=== PATIENT | female | born 1985 | race Two or more races ===

== ENCOUNTER → 2017-10-18 | Outpatient (CLI) | payer OTHER ==
[2017-10-18 16:44] LABS: BASOPHILS % (AUTO) 0.9 % (0.0-5.0); EOSINOPHILS % (AUTO) 1.5 % (0.0-8.0); HEMATOCRIT 34.8 % (36-48); LYMPHOCYTES % (AUTO) 34.2 % (21.0-51.0); MEAN CORPUSCULAR HEMOGLOBIN 28.2 pg (27.0-33.0); MEAN CORPUSCULAR HGB CONC 34.6 g/dL (32.0-36.0); MEAN CORPUSCULAR VOLUME 81.7 fL (79-99); NEUTROPHILS % (AUTO) 55.4 % (40.0-77.0); PLATELET COUNT (AUTO) 222 K/uL (130-400); RED BLOOD CELL COUNT(AUTO) 4.26 MIL/uL (4.00-5.50); RED CELL DISTRIBUTION WIDTH 13.4 % (11.0-15.5); WHITE BLOOD COUNT (AUTO) 5.6 K/uL (4.8-10.8)
[2017-10-18 16:52] LABS: APPEARANCE,URINE Clear (CLEAR); BILIRUBIN,URINE Negative (NEGATIVE); COLOR,URINE Dark Yellow (YELLOW); GLUCOSE, URINE (UA) Negative (NEGATIVE); KETONES,URINE Negative (NEGATIVE); LEUKOCYTE ESTERASE ,URINE Small (NEGATIVE); NITRATE,URINE Negative (NEGATIVE); OCCULT BLOOD,URINE Negative (NEGATIVE); PH,URINE 7.5 (5.0-8.0); PROTEIN,URINE Negative (NEGATIVE); UROBILINOGEN,URINE 0.2 mg/dL (0.2-1.0)
[2017-10-18 17:11] LABS: BACTERIA,URINE Few /HPF (None Seen); RBC,URINE None Seen /HPF (0-1); SQUAMOUS EPITHELIAL CELL,UR 0-2 /HPF (0-2); WBC,URINE 0-1 /HPF (0-1)
[2017-10-18 17:14] LABS: ALBUMIN 3.9 g/dL (3.5-5.0); BILIRUBIN,TOTAL 0.6 mg/dL (0.2-1.0); CREATININE 0.7 mg/dL (0.5-1.5); MAGNESIUM 1.8 mg/dL (1.80-2.40); POTASSIUM 3.6 mmol/L (3.5-5.1); THYROID STIMULATING HORMONE 1.35 uIU/mL (0.36-3.74)
== END | disposition home or self-care (01) ==
LOC: LAB 10-17 07:34
PROVIDERS: ATTEND Family Medicine
DX: Z00.01 Encounter for general adult medical examination with abnormal findings (principal); R79.89 Other specified abnormal findings of blood chemistry
CPT/HCPCS: 36415; 80053; 81001; 83735; 84443; 85025

== ENCOUNTER → 2018-07-11 | Outpatient (CLI) | payer OTHER ==
[2018-07-11 14:04] LABS: BASOPHILS % (AUTO) 1.2 % (0.0-5.0); EOSINOPHILS % (AUTO) 1.3 % (0.0-8.0); HEMATOCRIT 36.3 % (36-48); LYMPHOCYTES % (AUTO) 35.3 % (21.0-51.0); MEAN CORPUSCULAR HEMOGLOBIN 27.1 pg (27.0-33.0); MEAN CORPUSCULAR HGB CONC 32.5 g/dL (32.0-36.0); MEAN CORPUSCULAR VOLUME 83.6 fL (79-99); MONOCYTES % (AUTO) 6.6 % (3.0-13.0); NEUTROPHILS % (AUTO) 55.6 % (40.0-77.0); PLATELET COUNT (AUTO) 195 K/uL (130-400); RED BLOOD CELL COUNT(AUTO) 4.35 MIL/uL (4.00-5.50); RED CELL DISTRIBUTION WIDTH 13.3 % (11.0-15.5)
[2018-07-11 14:15] LABS: BILIRUBIN,TOTAL 0.5 mg/dL (0.2-1.0); CREATININE 0.6 mg/dL (0.5-1.5); TOTAL PROTEIN, SERUM 7.4 g/dL (6.0-8.3)
[2018-07-11 15:09] LABS: ERYTHROCYTE SEDIMENTATION RATE 5 MM/HR (0-20)
== END | disposition home or self-care (01) ==
LOC: RAH 13:12
PROVIDERS: ATTEND Family Medicine
DX: M54.2 Cervicalgia (principal); M54.5 Low back pain; M13.0 Polyarthritis, unspecified; R53.82 Chronic fatigue, unspecified
CPT/HCPCS: 36415; 72040; 72100; 80053; 85025; 85651; 86618

== ENCOUNTER → 2021-05-15 | Outpatient (CLI) | payer OTHER ==
[2021-05-15 11:13] LABS: BASOPHILS % (AUTO) 0.8 % (0.0-5.0); EOSINOPHILS % (AUTO) 1.3 % (0.0-8.0); LYMPHOCYTES % (AUTO) 23.3 % (21.0-51.0); MEAN CORPUSCULAR HEMOGLOBIN 26.7 pg (27.0-33.0); MEAN CORPUSCULAR HGB CONC 32.2 g/dL (32.0-36.0); MONOCYTES % (AUTO) 6.7 % (3.0-13.0); NEUTROPHILS % (AUTO) 67.8 % (40.0-77.0); PLATELET COUNT (AUTO) 212 K/uL (130-400); RED BLOOD CELL COUNT(AUTO) 4.46 MIL/uL (4.00-5.50); RED CELL DISTRIBUTION WIDTH 13.3 % (11.0-15.5); WHITE BLOOD COUNT (AUTO) 7.1 K/uL (4.8-10.8)
[2021-05-15 12:03] LABS: ALBUMIN 4.1 g/dL (3.5-5.0); BILIRUBIN,DIRECT 0.2 mg/dL (0.0-0.3); BILIRUBIN,TOTAL 0.9 mg/dL (0.2-1.0); CREATININE 0.7 mg/dL (0.5-1.5); POTASSIUM 3.9 mmol/L (3.5-5.1); THYROID STIMULATING HORMONE 1.03 uIU/mL (0.36-3.74); TOTAL PROTEIN, SERUM 7.4 g/dL (6.0-8.3)
== END | disposition home or self-care (01) ==
LOC: LAB 09:10
PROVIDERS: ATTEND Internal Medicine
DX: Z01.89 Encounter for other specified special examinations (principal); Z68.1 Body mass index [BMI] 19.9 or less, adult
CPT/HCPCS: 36415; 80048; 80061; 80076; 82607; 83540; 84443; 85025

== ENCOUNTER → 2021-11-09 | Outpatient (CLI) | payer OTHER | END | disposition home or self-care (01) | LOC: ICE 08:56 | PROVIDERS: ATTEND Hospitalist | DX: U07.1 COVID-19 (principal) | CPT/HCPCS: 87635; C9803 ==

== ENCOUNTER → 2022-02-16 | Outpatient (CLI) | payer OTHER ==
[2022-02-16 11:29] LABS: BASOPHILS % (AUTO) 0.6 % (0.0-5.0); EOSINOPHILS % (AUTO) 1.3 % (0.0-8.0); HEMATOCRIT 38.4 % (36-48); LYMPHOCYTES % (AUTO) 32.2 % (21.0-51.0); MEAN CORPUSCULAR HEMOGLOBIN 27.4 pg (27.0-33.0); MEAN CORPUSCULAR VOLUME 85.5 fL (79-99); MONOCYTES % (AUTO) 7.1 % (3.0-13.0); NEUTROPHILS % (AUTO) 58.2 % (40.0-77.0); PLATELET COUNT (AUTO) 186 K/uL (130-400); RED BLOOD CELL COUNT(AUTO) 4.49 MIL/uL (4.00-5.50); RED CELL DISTRIBUTION WIDTH 12.8 % (11.0-15.5); WHITE BLOOD COUNT (AUTO) 5.2 K/uL (4.8-10.8)
[2022-02-16 11:38] LABS: CREATININE 0.7 mg/dL (0.5-1.5); POTASSIUM 3.7 mmol/L (3.5-5.1); URIC ACID 2.8 mg/dL (2.6-7.2)
[2022-02-16 12:35] LABS: ERYTHROCYTE SEDIMENTATION RATE 7 MM/HR (0-20)
== END | disposition home or self-care (01) ==
LOC: RAH 10:05
PROVIDERS: ATTEND Internal Medicine
DX: Z13.220 Encounter for screening for lipoid disorders (principal); Z13.29 Encounter for screening for other suspected endocrine disorder; M25.531 Pain in right wrist
CPT/HCPCS: 36415; 73110; 80048; 84550; 85025; 85651; 86038; 86200

== ENCOUNTER → 2022-11-20 | Outpatient (CLI) | payer OTHER ==
[2022-11-20 12:19] LABS: BASOPHILS % (AUTO) 0.7 % (0.0-5.0); EOSINOPHILS % (AUTO) 1.6 % (0.0-8.0); HEMATOCRIT 38.1 % (36-48); LYMPHOCYTES % (AUTO) 32.3 % (21.0-51.0); MEAN CORPUSCULAR HGB CONC 31.5 g/dL (32.0-36.0); MEAN CORPUSCULAR VOLUME 85.8 fL (79-99); MONOCYTES % (AUTO) 7.7 % (3.0-13.0); NEUTROPHILS % (AUTO) 57.5 % (40.0-77.0); PLATELET COUNT (AUTO) 193 K/uL (130-400); RED BLOOD CELL COUNT(AUTO) 4.44 MIL/uL (4.00-5.50); RED CELL DISTRIBUTION WIDTH 13.1 % (11.0-15.5); WHITE BLOOD COUNT (AUTO) 5.5 K/uL (4.8-10.8)
[2022-11-20 12:51] LABS: ALBUMIN 4.1 g/dL (3.5-5.0); CREATININE 0.7 mg/dL (0.5-1.5); POTASSIUM 3.7 mmol/L (3.5-5.1); THYROID STIMULATING HORMONE 0.96 uIU/mL (0.36-3.74); TOTAL PROTEIN, SERUM 7.3 g/dL (6.0-8.3)
== END | disposition home or self-care (01) ==
LOC: LAB 11:42
PROVIDERS: ATTEND Internal Medicine
DX: Z00.00 Encounter for general adult medical examination without abnormal findings (principal); Z11.3 Encounter for screening for infections with a predominantly sexual mode of transmission; Z13.220 Encounter for screening for lipoid disorders; Z13.29 Encounter for screening for other suspected endocrine disorder; M25.532 Pain in left wrist; Z86.16 Personal history of COVID-19
CPT/HCPCS: 36415; 80053; 80061; 84443; 85025

== ENCOUNTER → 2023-03-04 | Outpatient (CLI) | payer OTHER | END | disposition home or self-care (01) | LOC: RAH 10:32 | PROVIDERS: ATTEND Student in an Organized Health Care Education/Training Program | DX: M79.89 Other specified soft tissue disorders (principal); M25.531 Pain in right wrist | CPT/HCPCS: 73110 ==

== ENCOUNTER → 2023-04-24 | Outpatient (CLI) | payer OTHER | END | disposition home or self-care (01) | LOC: RAH 08:57 | PROVIDERS: ATTEND Student in an Organized Health Care Education/Training Program | DX: M25.531 Pain in right wrist (principal) | CPT/HCPCS: 73221 ==

== ENCOUNTER → 2024-06-16 | Outpatient (CLI) | payer OTHER ==
[2024-06-16 12:34] LABS: BASOPHILS # (AUTO) 0.04 K/uL (0.00-0.20); BASOPHILS % (AUTO) 0.7 % (0.0-5.0); EOSINOPHILS # (AUTO) 0.08 K/uL (0.00-0.70); EOSINOPHILS % (AUTO) 1.3 % (0.0-8.0); HEMATOCRIT 36.8 % (36-48); IMMATURE GRANULOCYTE ABSOLUTE 0.02 K/uL (0-1); LYMPHOCYTES # (AUTO) 1.9 K/uL (1.0-4.8); LYMPHOCYTES % (AUTO) 32.4 % (21.0-51.0); MEAN CORPUSCULAR HEMOGLOBIN 26.9 pg (27.0-33.0); MEAN CORPUSCULAR HGB CONC 31.5 g/dL (32.0-36.0); MEAN CORPUSCULAR VOLUME 85.4 fL (79-99); MONOCYTES # (AUTO) 0.4 K/uL (0.1-1.0); MONOCYTES % (AUTO) 7.2 % (3.0-13.0); NEUTROPHILS # (AUTO) 3.5 K/uL (1.8-7.7); NEUTROPHILS % (AUTO) 58.1 % (40.0-77.0); PLATELET COUNT (AUTO) 183 K/uL (130-400); RED BLOOD CELL COUNT(AUTO) 4.31 MIL/uL (4.00-5.50); RED CELL DISTRIBUTION WIDTH 13.2 % (11.0-15.5)
[2024-06-16 13:31] LABS: ALBUMIN 3.8 g/dL (3.5-5.0); BILIRUBIN,TOTAL 0.9 mg/dL (0.2-1.0); CREATININE 0.6 mg/dL (0.5-1.0); POTASSIUM 3.7 mmol/L (3.5-5.1); THYROID STIMULATING HORMONE 1.38 uIU/mL (0.36-3.74); TOTAL PROTEIN, SERUM 6.9 g/dL (6.0-8.3)
[2024-06-16 13:36] LABS: HIV 1&2 ANTIBODY Non-Reactive (Negative); HIV-1 p24 Antigen Non-Reactive (Negative)
[2024-06-17 14:52] LABS: RAPID PLASMA REAGIN NONREACTIVE (NONREACTIVE)
== END | disposition home or self-care (01) ==
LOC: LAB 11:41
PROVIDERS: ATTEND Internal Medicine
DX: Z00.00 Encounter for general adult medical examination without abnormal findings (principal); Z13.220 Encounter for screening for lipoid disorders; Z11.4 Encounter for screening for human immunodeficiency virus [HIV]; Z13.29 Encounter for screening for other suspected endocrine disorder; Z72.51 High risk heterosexual behavior
CPT/HCPCS: 36415; 80053; 80061; 84443; 85025; 86592; 86701; 87390; 87491; 87591

== ENCOUNTER 2024-09-24 21:51 | Emergency (ER) | payer OTHER ==
[~2024-09-24] VITALS: Ht 175.3 cm; Wt 62.6 kg
[2024-09-24 21:52] VITALS: BP 107/64; PULSE 111; RESP 20; TEMP 100.8
--- NOTE | 2024-09-24 21:53 | NUR ---
COVID, FLU AND STREP SWABS COLLECTED AND SENT [facility] PROVIDED
[2024-09-24 22:11] LABS: RAPID GROUP A STREP negative (NEGATIVE)
[2024-09-24 22:14] LABS: SARS-CoV-2, RNA, NAAT NEGATIVE SARS CoV-2 (NEGATIVE)
[2024-09-24 22:21] LABS: INFLUENZA TYPE A Negative For Type A (NEGATIVE); INFLUENZA TYPE B Negative For Type B (NEGATIVE)
--- NOTE | 2024-09-25 00:18 | NUR ---
PT PLACED IN FAST TRACK AT THIS TIME
--- NOTE | 2024-09-25 00:32 | NUR ---
CALLED FOR PATIENT IN FAST TRACK, PT NOT FOUND IN FAST TRACK, ER LOBBY OR RESTROOMS
--- NOTE | 2024-09-25 00:40 | NUR ---
CALED FOR PATIENT X2, NO ANSWER
--- NOTE | 2024-09-25 00:47 | ERN ---
ED Note History of Present Illness Stated Complaint: FEVER, BODYACHES Chief Complaint: Fever Time Seen by MD: 22:10 Time Seen by Midlevel: 22:10 Dictation: The Patient is a 39-year-old female with history of who presents to the emergency department with complaints of fever, sore throat, nonproductive cough onset three days ago. Patient reports also some nonbloody diarrhea. Denies any ear pain abdominal pain nausea or vomiting. Allergies: Coded Allergies: morphine (Unverified Allergy, Unknown, 09/24/24) Past Medical History Past Medical History: No Pertinent History Surgical History: RN Note Reviewed/Agreed w/PFSH: Yes Review of System Dictation Constitutional: Negative for weight loss positive for fever,chills Eyes: Negative for injury, pain,redness, and discharge ENT: Negative for injury,pain or swelling Cardiovascular: Negative for chest pain, palpitations, and edema Respiratory: Negative for shortness of breath,, and wheezing, positive for cough Abdomen/GI: Negative for abdominal pain, nausea, vomiting, diarrhea, and constipation Back: Negative for injury and pain : Negative for injury, bleeding and discharge MS/Extremity: Negative for injury and deformity Skin: Negative for rash, and discoloration Neuro: Negative for headache, weakness, numbness, tingling, and seizure Psych: Negative for suicide ideation, homicidal ideation, and hallucinations Initial Vital Sign VS Vital Signs Date Time Temp Pulse Resp B/P (MAP) Pulse Ox O2 Delivery O2 Flow Rate FiO2 09/24/24 21:52 100.8 111 20 107/64 97 Room Air Physical Exam Dictation Vital Signs reviewed General Appearance: Alert, oriented x 3, no acute distress, well developed, nourished. Head and Face: non-traumatic. Eyes: PERRL, pink conjunctivas, eyelid no trauma, anterior chamber with arcus senilis. Ears: Pinnas intact and no signs of trauma or erythema ear canals clear and no discharge TM no erythema Nose: No discharge, no bleeding. Oropharynx: Mouth normal, tongue pink. pharynx clear,no erythema, tonsils no exudates, no abscesses noted, mucous membrane moist Neck: Supple, non-tender, no thyromegaly, no masses, no JVD, no bruits Breast:Deferred Chest:No tenderness, no crepitus, no paradoxical movement, no retractions Lungs:Clear, well-ventilated, symmetric, no rales, no wheezing, no rhonchi, no stridor, good breath sounds bilaterally Heart: Regular rate, regular rhythm, no murmur, no gallops Vascular: no peripheral edema, Abdomen: Soft, positive bowel sounds, nondistended, no guarding, nontender, no rebound, no masses no hepatomegaly, no splenomegaly, no Blas's sign, no hernias. Rectal: Deferred Genital: Deferred Neurological: Normal speech, motor function intact, sensory function intact Musculoskeletal: Neck nontender, full range of motion, back nontender, full range of motion, Extremities: nontender, full range of motion Skin: Color pink, dry, no turgor, no rash, no lacerations, no abrasions, no contusions. Lymphatic: Deferred Results (Laboratory/Radiology) Laboratory/Radiology Laboratory Tests Test 09/24/24 21:54 Influenza Type A Antigen Negative For Type A Influenza Type B Antigen Negative For Type B SARS-CoV-2, RNA, NAAT NEGATIVE SARS CoV-2 Group A Streptococcus Rapid negative (NEGATIVE) Labs Reviewed?: Yes ED Course ED Course Orders Procedure Category Date Status Time Covid Rna Naat LAB 09/24/24 Complete 21:53 Influenza Type A & B, LAB 09/24/24 Complete Rapid 21:53 Rapid (Group A Strep) LAB 09/24/24 Complete 21:53 ,Urine Test LAB 09/24/24 Logged 23:08 Chest 1vw RAD 09/24/24 Taken 23:08 Vital Signs Date Time Temp Pulse Resp B/P (MAP) Pulse Ox O2 Delivery O2 Flow Rate FiO2 09/24/24 21:52 100.8 111 20 107/64 97 Room Air Medical Decision Making MDM The Patient is a 39-year-old female with history of who presents to the emergency department with complaints of fever, sore throat, nonproductive cough onset three days ago. Patient reports also some nonbloody diarrhea. Denies any ear pain abdominal pain nausea or vomiting. Serology negative. X-ray showed no acute consolidation. Patient in no acute distress, clear lung sounds. Nontoxic appearance will be discharged to follow up with PCP. Differential diagnosis: Pneumonia, bronchitis, upper respiratory infection Need for hospitalization: Patient does not meet criteria for hospitalization. There are no social concerns with this patient. DX & DISP Disposition: Discharge Departure Impression: Primary Impression: URI (upper respiratory infection) Additional Impression: Fever Condition: Stable Additional Instructions: Please follow up with your primary doctor in 1-2 days. Please return to ER if symptoms worsen. FOLLOW-UP WITH PRIMARY CARE PROVIDER IN 1 TO 2 DAYS. TAKE MEDICATIONS DIRECTED HERE IN THE EMERGENCY ROOM. OKAY TO CONTINUE HOME MEDICATIONS UNLESS OTHERWISE DISCUSSED DURING YOUR VISIT IN THE EMERGENCY ROOM TODAY. RETURN TO YOUR NEAREST EMERGENCY ROOM IF SYMPTOMS WORSEN OR IF THERE IS NO IMPROVEMENT. CALL 911 IF YOU NEED IMMEDIATE ASSISTANCE. TAKE TYLENOL OR MOTRIN [id number] NEEDED AND IF NO CONTRAINDICATIONS ARE PRESENT. INCREASE ORAL HYDRATION. A WOUND CULTURE OR URINE CULTURE WAS ORDERED HERE IN THE EMERGENCY ROOM DEPARTMENT PLEASE FOLLOW-UP WITH PRIMARY CARE PROVIDER AND ADVISE THEM TO GET REPEAT PORTS FROM OUR FACILITY. IF YOU HAD ANY VINI WRAP/SPLINTS THAT WERE APPLIED HERE, PLEASE DO NOT REMOVE THEM UNTIL YOU SEE YOUR PRIMARY CARE OR SPECIALTY. Referrals: JENNIFFER VALENTINE MD (PCP) Time of Disposition: 00:51 I have reviewed the case, and I agree with, Diagnosis and Plan JOSSUE BOOKER September 25, 2024 00:47
--- NOTE | 2024-09-25 00:55 | NUR ---
CALLED FOR PATIENT X3, NO ANSWER
--- NOTE | 2024-09-25 01:00 | NUR ---
PT NOTED TO HAVE ELOPED PRIOR TO RECEIVING DC PAPERS. UNABLE TO OBTAIN NEW SET OF VITALS OR PRIMARY NURSING ASSESSMENT DUE TO PT ELOPEMENT.
--- NOTE | 2024-09-25 08:38 | HMCIMG ---
Exam Type: CHEST 1VW Clinical Information: cough Comparison: None Findings: The lungs are clear of infiltrates. The heart is normal in size. The bony and soft tissue structures of the chest are unremarkable. Impression: Clear lungs.
== END 2024-09-25 01:13 | disposition home or self-care (01) ==
LOC: EDH 21:51
DX: J06.9 Acute upper respiratory infection, unspecified (principal); R50.9 Fever, unspecified; Z88.5 Allergy status to narcotic agent; Z20.822 Contact with and (suspected) exposure to COVID-19; Z98.890 Other specified postprocedural states
CPT/HCPCS: 71045; 87635; 87804; 87880; 99284

== ENCOUNTER 2024-09-27 12:27 | Emergency (ER) | payer OTHER ==
[~2024-09-27] VITALS: Ht 175.3 cm; Wt 62.1 kg
[2024-09-27] MEDS: 0.9%NACL 1000ML 1,000 ML IV STA (13:26)
[2024-09-27] MEDS: guaiFENesin/dextroMETHORphan 1 EACH TAB.SR.12H PO STA (13:26)
[2024-09-27] MEDS: Solu-medROL 125MG VIAL IVP STA (13:26)
[2024-09-27 13:31] LABS: BASOPHILS # (AUTO) 0.02 K/uL (0.00-0.20); BASOPHILS % (AUTO) 0.3 % (0.0-5.0); EOSINOPHILS # (AUTO) 0.08 K/uL (0.00-0.70); EOSINOPHILS % (AUTO) 1.2 % (0.0-8.0); IMMATURE GRANULOCYTE ABSOLUTE 0.03 K/uL (0-1); LYMPHOCYTES # (AUTO) 1.2 K/uL (1.0-4.8); LYMPHOCYTES % (AUTO) 18.8 % (21.0-51.0); MEAN CORPUSCULAR HEMOGLOBIN 27.1 pg (27.0-33.0); MEAN CORPUSCULAR HGB CONC 32.9 g/dL (32.0-36.0); MEAN CORPUSCULAR VOLUME 82.5 fL (79-99); MONOCYTES # (AUTO) 0.7 K/uL (0.1-1.0); MONOCYTES % (AUTO) 9.8 % (3.0-13.0); NEUTROPHILS # (AUTO) 4.6 K/uL (1.8-7.7); NEUTROPHILS % (AUTO) 69.4 % (40.0-77.0); PLATELET COUNT (AUTO) 194 K/uL (130-400); RED BLOOD CELL COUNT(AUTO) 4.24 MIL/uL (4.00-5.50); RED CELL DISTRIBUTION WIDTH 13.1 % (11.0-15.5); WHITE BLOOD COUNT (AUTO) 6.6 K/uL (4.8-10.8)
[2024-09-27 13:33] VITALS: PULSE 91; RESP 18
[2024-09-27] MEDS: IpraTROPium/alBUTERol SULFATE 3 ML SOLUTION IH STA (13:33)
[2024-09-27 13:34] LABS: APPEARANCE,URINE CLEAR (CLEAR); BILIRUBIN,URINE NEGATIVE (NEGATIVE); COLOR,URINE COLORLESS (YELLOW); GLUCOSE, URINE (UA) NEGATIVE (NEGATIVE); KETONES,URINE NEGATIVE (NEGATIVE); LEUKOCYTE ESTERASE ,URINE NEGATIVE Leu/uL (NEGATIVE); NITRATE,URINE NEGATIVE (NEGATIVE); OCCULT BLOOD,URINE NEGATIVE (NEGATIVE); PROTEIN,URINE NEGATIVE (NEGATIVE); UROBILINOGEN,URINE 0.2 mg/dL (0.2-1.0)
[2024-09-27 13:53] LABS: CREATININE 0.6 mg/dL (0.5-1.0); POTASSIUM 3.8 mmol/L (3.5-5.1)
[2024-09-27 14:10] LABS: ADD UA MICROSCOPIC NO
--- NOTE | 2024-09-27 14:11 | ERN ---
ED Note History of Present Illness Stated Complaint: LACERATION TO 3RD DIGIT ON LT HAND,COUGH,WHEEZING Chief Complaint: Multiple Complaints Time Seen by MD: 13:05 Time Seen by Midlevel: 13:09 Dictation: 39-year-old female with no past medical history coming in with complaints of a laceration to the left 3rd digit. 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 Also states she has coughing and wheezing for the last six days. Patient states she was seen here a few days ago was diagnosed with a URI and states has not gotten better. Patient states she is up-to-date with the tetanus vaccine. Allergies: Coded Allergies: morphine (Unverified Allergy, Unknown, 09/24/24) Past Medical History Past Medical History: No Pertinent History Surgical History: Review of System Dictation Constitutional: Negative for fever,chills, and weight loss Eyes: Negative for injury, pain,redness, and discharge ENT: Negative for injury,pain or swelling Cardiovascular: Negative for chest pain, palpitations, and edema Respiratory: Complaining of cough Abdomen/GI: Negative for abdominal pain, nausea, vomiting, diarrhea, and constipation Back: Negative for injury and pain : Negative for injury, bleeding and discharge MS/Extremity: Negative for injury and deformity Skin: Negative for rash, and discoloration, laceration to the left 3rd digit Neuro: Negative for headache, weakness, numbness, tingling, and seizure Psych: Negative for suicide ideation, homicidal ideation, and hallucinations Review of Systems: was completed Initial Vital Sign VS Vital Signs Date Time Temp Pulse Resp B/P (MAP) Pulse Ox O2 Delivery O2 Flow Rate FiO2 09/27/24 12:28 99.7 96 20 116/91 99 Room Air 09/27/24 12:41 0 21 Physical Exam Dictation General: awake, alert, NAD Head/Face: Normocephalic, atraumatic Eyes: PERRL, EOMI, vision at baseline ENT: oral cavity clear, TMs clear, no signs of infection Neck: Trachea midline, supple, no nuchal rigidity Cardiovascular: RRR, normal S1/S2, No MRGs, no JVD Respiratory: Expiratory crackles, no respiratory distress, Abdomen: Soft, non-tender, non-distended, normal bowel sounds, no guarding or rebound. Skin: Warm, dry, normal turgor, no rash, it is about a 2.5 cm avulsion to the dorsal aspect of the 3rd digit along the PIP, patient able to Morales bend and extend finger. No active bleeding. MS/Extremity: Pulses equal, no cyanosis, neurovascular intact, FROM Neuro: COAx4, GCS 15, strength 5/5, CN 2-12 intact, normal cerebellar exam, normal gait, Psych: Normal behavior, mood, and affect normal Results (Laboratory/Radiology) Laboratory/Radiology Laboratory Tests Test 09/27/24 12:43 09/27/24 13:02 Urine Color COLORLESS (YELLOW) Urine Appearance CLEAR (CLEAR) Urine pH 7.0 (5.0-8.0) Urine Specific Burton 1.003 (1.001-1.031) Urine Protein NEGATIVE mg/dL (NEGATIVE) Urine Glucose (UA) NEGATIVE mg/dL (NEGATIVE) Urine Ketones NEGATIVE mg/dL (NEGATIVE) Urine Occult Blood NEGATIVE (NEGATIVE) Urine Nitrate NEGATIVE (NEGATIVE) Urine Bilirubin NEGATIVE mg/dL (NEGATIVE) Urine Urobilinogen 0.2 mg/dL (0.2-1.0) Urine Leukocyte Esterase NEGATIVE Dennis/uL Urine HCG, Qualitative NEGATIVE (NEGATIVE) White Blood Count 6.6 K/uL (4.8-10.8) Red Blood Count 4.24 MIL/uL (4.00-5.50) Hemoglobin 11.5 g/dL (12.0-16.0) L Hematocrit 35.0 % (36-48) L Mean Corpuscular Volume 82.5 fL (79-99) Mean Corpuscular Hemoglobin 27.1 pg (27.0-33.0) Mean Corpuscular Hemoglobin Concent 32.9 g/dL (32.0-36.0) Red Cell Distribution Width 13.1 % (11.0-15.5) Platelet Count 194 K/uL (130-400) Mean Platelet Volume 11.3 fL (7.5-10.5) H Immature Granulocyte % (Auto) 0.5 % (0-1) Neutrophils (%) (Auto) 69.4 % (40.0-77.0) Lymphocytes (%) (Auto) 18.8 % (21.0-51.0) L Monocytes (%) (Auto) 9.8 % (3.0-13.0) Eosinophils (%) (Auto) 1.2 % (0.0-8.0) Basophils (%) (Auto) 0.3 % (0.0-5.0) Neutrophils # (Auto) 4.6 K/uL (1.8-7.7) Lymphocytes # (Auto) 1.2 K/uL (1.0-4.8) Monocytes # (Auto) 0.7 K/uL (0.1-1.0) Eosinophils # (Auto) 0.08 K/uL (0.00-0.70) Basophils # (Auto) 0.02 K/uL (0.00-0.20) Absolute Immature Granulocyte (auto 0.03 K/uL (0-1) Nucleated Red Blood Cells 0.0 % (0.0-0.19) Sodium Level 142 mmol/L (136-145) Potassium Level 3.8 mmol/L (3.5-5.1) Chloride Level 103 mmol/L (101-111) Carbon Dioxide Level 25 mmol/L (21-32) Blood Urea Nitrogen 6 mg/dL (7-18) L Creatinine 0.6 mg/dL (0.5-1.0) Glomerular Filtration Rate Calc 117 mL/min (>90) Random Glucose 93 mg/dL (70-105) Total Calcium 8.8 mg/dL (8.5-10.1) Labs Reviewed?: Yes ED Course ED Course Orders Procedure Category Date Status Time Cbc With Differential LAB 09/27/24 Complete 13:15 Basic Metabolic Panel LAB 09/27/24 Complete 13:15 Chest 1vw RAD 09/27/24 Resulted 13:15 Methylprednisolone PHA 09/27/24 Complete Succ 125mg (Solu-Medr 13:15 Ipratropium/Albuterol PHA 09/27/24 Complete Neb (Duoneb) 13:15 0.9%Nacl 1000ml (Ns PHA 09/27/24 Complete 1000ml) 13:15 Guaifenesin/Dextromethorphan PHA 09/27/24 Complete (Mucinex Dm 13:15 Urinalysis Profile LAB 09/27/24 Complete 13:21 ,Urine Test LAB 09/27/24 Complete 13:21 Dermabond (Dermabond) PHA 09/27/24 Complete 14:24 Current Medications Medications (Trade) Dose Ordered Sig/Romero Route PRN Reason Start Time Stop Time Status Last Admin Dose Admin Albuterol (DUOneb) 1 UDVIAL ONCE STAT IH 09/27/24 13:15 09/27/24 13:22 DC 09/27/24 13:33 Guaifenesin/ Dextromethorphan (MUCinex DM 1 EACH TAB.SR.12H) 2 each ONCE STAT PO 09/27/24 13:15 09/27/24 13:22 DC 09/27/24 13:26 Methylprednisolone Sodium Succinate (Solu-medROL 125MG) 125 mg ONCE STAT IVP 09/27/24 13:15 09/27/24 13:22 DC 09/27/24 13:26 Octyl Cyanoacrylate (Dermabond) 1 each ONCE STAT TP 09/27/24 14:24 09/27/24 14:25 DC Sodium Chloride 1,000 ml @ 1,000 mls/hr Q1H STAT IV 09/27/24 13:15 09/27/24 14:14 DC 09/27/24 13:26 Vital Signs Date Time Temp Pulse Resp B/P (MAP) Pulse Ox O2 Delivery O2 Flow Rate FiO2 09/27/24 13:33 91 18 09/27/24 12:41 98.2 88 18 114/77 98 Room Air* 0 21 09/27/24 12:28 99.7 96 20 116/91 99 Room Air Medical Decision Making MDM MDM: 39-year-old female with no past medical history coming in with complaints of a laceration to the left 3rd digit. 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 Also states she has coughing and wheezing for the last six days. Patient states she was seen here a few days ago was diagnosed with a URI and states has not gotten better. Patient states she is up-to-date with the tetanus vaccine. Unremarkable. Chest x-ray shows no acute findings. Wound was cleaned with a wound cleanser. Apply wet-to-dry dressing and a finger splint. Educated patient on wound care and when to return back to the hospital. Patient's vital signs has been stable, oxygenation 100%, no tachypnea, no hypoxia. We will discharge patient on Medrol pack antibiotics and she has been having these symptoms of cough fever for the last six days with no improvement. Educated patient to follow up with PCP if no improvement in the next 2-3 days. Patient verbalized understanding, answered all questions. Differential diagnosis: Avulsion, laceration, tendon involvement, pneumonia, URI, bronchitis Rationale: Tests considered and ordered secondary to shared decision making include: Previous outside records reviewed: Old ER visits. Risk of complication and/or morbidity or mortality of patient management: None Medications-Per medication reconciliation Need for hospitalization: Patient does not meet criteria for hospitalization. Need for emergency major/minor surgery: No There are no social concerns with this patient. Prescription drug management Prescriptions will include symptomatic care Patient's prior external medical records from other ER visits were reviewed by me as indicated. Prior testing and results from previous visits were reviewed. Prior tests were taken into account with medical decision making and resource utilization, independent historian/historians were used to obtain complete medical history. I independently interpreted the test that were performed, results were reviewed by me and considered findings on radiology if ordered. Medical management and examination interpretation discussions were had by me with other qualified healthcare professionals as indicated for the patient's care. DX & DISP Disposition: Discharge Departure Impression: Primary Impression: URI (upper respiratory infection) Condition: Stable Scripts Azithromycin (Azithromycin) 500 Mg Tablet 1 TAB PO DAILY for 5 Days, #5 TAB 0 Refills Prov: RENETTA RAMIREZ NP 09/27/24 Albuterol Sulfate (Ventolin Hfa/Proventil Hfa/Proair Hfa) 90 Mcg Puff 1 PUFF IH Q4H PRN for SHORTNESS OF BREATH for 5 Days, #1 INH 0 Refills PHARMACY TO DISPENSE 1 INHALER FOR USE Prov: RENETTA RAMIREZ NP 09/27/24 Methylprednisolone (Medrol) 4 Mg Tab.ds.pk 1 TAB PO AD for 6 Days, #21 TAB 0 Refills 6 on day 1 then reduce by one tablet daily until gone Prov: RENETTA RAMIREZ NP 09/27/24 Additional Instructions: Medications as prescribed. In addition you can take Tylenol, Motrin and [id number] cough medication for your cough. If no improvement in the next 2-3 days after starting that medication please return to the hospital follow up with your PCP. Keep area of the wound clean and dry. Referrals: JENNIFFER VALENTINE MD (PCP) Time of Disposition: 14:44 I have reviewed the case, and I agree with, Diagnosis and Plan RENETTA RAMIREZ NP September 27, 2024 14:11
--- NOTE | 2024-09-27 14:14 | HMCIMG ---
PORTABLE CHEST RADIOGRAPH INDICATION: cough COMPARISON: 09/24/2024 FINDINGS: Heart size is normal. The pulmonary vascularity and chelsey appear normal. No abnormal pulmonary parenchymal opacity or consolidation identified. No significant pleural effusion noted. No pneumothorax detected. IMPRESSION: No radiographic evidence for any acute cardiopulmonary process.
[2024-09-27 14:19] LABS: HCG,QUALITATIVE URINE NEGATIVE (NEGATIVE)
[2024-09-27] MEDS ORDERED: OCTYL 2-CYANOACRYLATE 1 EACH TP STA (14:24)
[2024-09-27 14:37] VITALS: BP 112/69; PULSE 89; RESP 18; TEMP 98.3; O2SAT 98
[2024-09-27] MEDS ORDERED: AZIT500T4 PO (14:44)
[2024-09-27] MEDS ORDERED: METH4TAB3 PO (14:44)
[2024-09-27] MEDS ORDERED: ALBUHFA IH (14:44)
== END 2024-09-27 15:00 | disposition home or self-care (01) ==
LOC: EDH 12:27
DX: S61.303A Unspecified open wound of left middle finger with damage to nail, initial encounter (principal); J06.9 Acute upper respiratory infection, unspecified; Z98.890 Other specified postprocedural states; Z88.5 Allergy status to narcotic agent; W26.8XXA Contact with other sharp object(s), not elsewhere classified, initial encounter; Y93.89 Activity, other specified; Y92.89 Other specified places as the place of occurrence of the external cause; Y99.8 Other external cause status
CPT/HCPCS: 99284; 96374; 71045; 80048; 85025; 81003; 81025; 36415; 29130; 94640; J2919; J7030

== ENCOUNTER 2024-10-08 10:04 | Emergency (ER) | payer OTHER ==
[~2024-10-08] VITALS: Ht 175.3 cm; Wt 62.6 kg
[~2024-10-08 10:04] MED LIST: ALBUHFA IH; AZIT500T4 PO; METH4TAB3 PO
[2024-10-08 10:06] VITALS: BP 123/77; TEMP 98.9
[2024-10-08] MEDS: IpraTROPium/alBUTERol SULFATE 3 ML SOLUTION IH ONE ×2 (11:04→13:27)
[2024-10-08] MEDS: Solu-medROL 125MG VIAL IVP ONE (11:08)
[2024-10-08 11:09] VITALS: PULSE 92; RESP 20
[2024-10-08] MEDS: MAGNESIUM 2GM PREMIX 50ML 50 ML IV SCH (11:09)
[2024-10-08 11:13] LABS: BASOPHILS # (AUTO) 0.05 K/uL (0.00-0.20); BASOPHILS % (AUTO) 0.3 % (0.0-5.0); EOSINOPHILS # (AUTO) 0.03 K/uL (0.00-0.70); EOSINOPHILS % (AUTO) 0.2 % (0.0-8.0); HEMATOCRIT 36.7 % (36-48); IMMATURE GRANULOCYTE ABSOLUTE 0.13 K/uL (0-1); LYMPHOCYTES # (AUTO) 0.7 K/uL (1.0-4.8); MEAN CORPUSCULAR HEMOGLOBIN 27.4 pg (27.0-33.0); MEAN CORPUSCULAR HGB CONC 32.4 g/dL (32.0-36.0); MEAN CORPUSCULAR VOLUME 84.4 fL (79-99); MONOCYTES # (AUTO) 0.6 K/uL (0.1-1.0); MONOCYTES % (AUTO) 3.2 % (3.0-13.0); NEUTROPHILS # (AUTO) 16.9 K/uL (1.8-7.7); NEUTROPHILS % (AUTO) 91.6 % (40.0-77.0); PLATELET COUNT (AUTO) 224 K/uL (130-400); RED BLOOD CELL COUNT(AUTO) 4.35 MIL/uL (4.00-5.50); RED CELL DISTRIBUTION WIDTH 13.2 % (11.0-15.5); WHITE BLOOD COUNT (AUTO) 18.4 K/uL (4.8-10.8)
[2024-10-08 11:19] LABS: SARS-CoV-2, RNA, NAAT NEGATIVE SARS CoV-2 (NEGATIVE)
[2024-10-08 11:20] LABS: CREATININE 0.6 mg/dL (0.5-1.0); POTASSIUM 3.8 mmol/L (3.5-5.1)
[2024-10-08 11:22] LABS: INFLUENZA TYPE A Negative For Type A (NEGATIVE); INFLUENZA TYPE B Negative For Type B (NEGATIVE)
--- NOTE | 2024-10-08 12:24 | HMCIMG ---
CHEST 1VW HISTORY: Shortness of breath COMPARISON: None FINDINGS: A frontal projection of the chest was obtained. No acute pulmonary infiltrates is seen. The heart is normal in size. Prominent interstitial markings are seen. No evidence of aortic calcification is seen. IMPRESSION: 1. Prominent interstitial markings are seen with possible superimposed infiltrates.
[2024-10-08] MEDS ORDERED: acetaMINOPHEN WITH coDEINE 1 TAB TAB PO ONE (12:30)
[2024-10-08] MEDS: cefTRIAXone 1G VIAL IVPB ONE (13:03)
[2024-10-08] MEDS: BENZONATATE 100 MG CAPSULE PO ONE (13:03)
[2024-10-08] MEDS ORDERED: BENZ-39 PO (13:22)
--- NOTE | 2024-10-08 13:23 | ERN ---
General Chief Complaint: Shortness of Breath Stated Complaint: SOB Time Seen by MD: 10:06 Time Seen by Midlevel: 10:06 Source: patient History of Present Illness Initial Comments The patient is a pleasant 39-year-old female with no significant past medical history presenting to the emergency department for evaluation of cough, shortness of breath, and wheezing. The patient was diagnosed with acute bronchitis two weeks ago. She has been seen in the emergency department 2 times since her symptoms started for the same complaint. Both time she was diagnosed with a acute bronchitis. Chest x-rays did not reveal any evidence of pneumonia. She has already tried doxycycline and was recently started on azithromycin yesterday. She has also been on steroids and has been on them for the past week. She specifically denies any history of asthma or COPD. Allergies: Coded Allergies: morphine (Unverified Allergy, Unknown, 09/24/24) Home Meds Active Scripts Azithromycin (Azithromycin) 500 Mg Tablet, 1 TAB PO DAILY for 5 Days, #5 TAB 0 Refills Prov:RENETTA RAMIREZ NP 09/27/24 Albuterol Sulfate (Ventolin Hfa/Proventil Hfa/Proair Hfa) 90 Mcg Puff, 1 PUFF IH Q4H PRN for SHORTNESS OF BREATH for 5 Days, #1 INH 0 Refills PHARMACY TO DISPENSE 1 INHALER FOR USE Prov:RENETTA RAMIREZ NP 09/27/24 Methylprednisolone (Medrol) 4 Mg Tab.ds.pk, 1 TAB PO AD for 6 Days, #21 TAB 0 Refills 6 on day 1 then reduce by one tablet daily until gone Prov:RENETTA RAMIREZ NP 09/27/24 Past Medical History Past Medical History: No Pertinent History Past Surgical History: ROS Dictation CONSTITUTIONAL: Negative except for HPI HEAD/FACE: Negative except for HPI EENT: Negative except for HPI RESPIRATORY: Negative except for HPI GASTROINTESTINAL/ABDOMINAL: Negative except for HPI GENITOURINARY: Negative except for HPI MUSCULOSKELETAL: Negative except for HPI INTEGUMENTARY: Negative except for HPI NEUROLOGICAL/PSYCH: Negative except for HPI HEMATOLOGIC/LYMPHATIC: Negative except for HPI All Systems Negative, Except as noted above. 13 point review of systems assessed and all negative except for above. Physical Exam Physical Exam Dictation Vital Signs reviewed General Appearance: Alert, oriented x 3, no acute distress, well developed, nourished. Head and Face: non-traumatic. Eyes: PERRL, pink conjunctivas, eyelid no trauma, anterior chamber with arcus senilis. Ears: Pinnas intact and no signs of trauma or erythema ear canals clear and no discharge TM no erythema Nose: No discharge, no bleeding. Oropharynx: Mouth normal, tongue pink, pharynx clear,no erythema, tonsils no exudates, no abscesses noted, mucous membrane moist Neck: Supple, non-tender, no thyromegaly, no masses, no JVD, no bruits Breast:Deferred Chest:No tenderness, no crepitus, no paradoxical movement, no retractions Lungs: Diffuse expiratory wheezing to bilateral lung sullivan, symmetric, , no rhonchi, no stridor Heart: Regular rate, regular rhythm, no murmur, no gallops Vascular: no peripheral edema, Abdomen: Soft, positive bowel sounds, nondistended, no guarding, nontender, no rebound, no masses no hepatomegaly, no splenomegaly, no Blas's sign, no hernias. Rectal: Deferred Genital: Deferred Neurological: Normal speech, motor function intact, sensory function intact Musculoskeletal: Neck nontender, full range of motion, back nontender, full range of motion, Extremities: nontender, full range of motion Skin: Color pink, dry, no turgor, no rash, no lacerations, no abrasions, no contusions. Lymphatic: Deferred Results Laboratory and Microbiology Lab and Micro Result Laboratory Tests Test 10/08/24 11:00 10/08/24 11:04 Influenza Type A Antigen Negative For Type A Influenza Type B Antigen Negative For Type B SARS-CoV-2, RNA, NAAT NEGATIVE SARS CoV-2 White Blood Count 18.4 K/uL (4.8-10.8) H Red Blood Count 4.35 MIL/uL (4.00-5.50) Hemoglobin 11.9 g/dL (12.0-16.0) L Hematocrit 36.7 % (36-48) Mean Corpuscular Volume 84.4 fL (79-99) Mean Corpuscular Hemoglobin 27.4 pg (27.0-33.0) Mean Corpuscular Hemoglobin Concent 32.4 g/dL (32.0-36.0) Red Cell Distribution Width 13.2 % (11.0-15.5) Platelet Count 224 K/uL (130-400) Mean Platelet Volume 11.1 fL (7.5-10.5) H Immature Granulocyte % (Auto) 0.7 % (0-1) Neutrophils (%) (Auto) 91.6 % (40.0-77.0) H Lymphocytes (%) (Auto) 4.0 % (21.0-51.0) L Monocytes (%) (Auto) 3.2 % (3.0-13.0) Eosinophils (%) (Auto) 0.2 % (0.0-8.0) Basophils (%) (Auto) 0.3 % (0.0-5.0) Neutrophils # (Auto) 16.9 K/uL (1.8-7.7) H Lymphocytes # (Auto) 0.7 K/uL (1.0-4.8) L Monocytes # (Auto) 0.6 K/uL (0.1-1.0) Eosinophils # (Auto) 0.03 K/uL (0.00-0.70) Basophils # (Auto) 0.05 K/uL (0.00-0.20) Absolute Immature Granulocyte (auto 0.13 K/uL (0-1) Nucleated Red Blood Cells 0.0 % (0.0-0.19) White Cell Morphology Comment See comments Sodium Level 141 mmol/L (136-145) Potassium Level 3.8 mmol/L (3.5-5.1) Chloride Level 104 mmol/L (101-111) Carbon Dioxide Level 29 mmol/L (21-32) Blood Urea Nitrogen 13 mg/dL (7-18) Creatinine 0.6 mg/dL (0.5-1.0) Glomerular Filtration Rate Calc 117 mL/min (>90) Random Glucose 109 mg/dL (70-105) H Total Calcium 8.8 mg/dL (8.5-10.1) Magnesium Level 2.00 mg/dL (1.80-2.40) Labs Reviewed?: Yes MDM MDM: The patient is a pleasant 39-year-old female with no significant past medical history presenting to the emergency department for evaluation of cough, shortness of breath, and wheezing. The patient was diagnosed with acute bronchitis two weeks ago. She has been seen in the emergency department 2 times since her symptoms started for the same complaint. Both time she was diagnosed with a acute bronchitis. Chest x-rays did not reveal any evidence of pneumonia. She has already tried doxycycline and was recently started on azithromycin yesterday. She has also been on steroids and has been on them for the past week. She specifically denies any history of asthma or COPD. On physical examination the patient is in no acute respiratory distress however lung auscultation reveals bilateral expiratory wheezing. The patient was given a DuoNeb treatment, Solu-Medrol IV, and magnesium sulfate IV. Basic blood work was obtained. CBC shows leukocytosis with a white blood cell count of 18.4 with a left shift. The leukocytosis could be attributed to her continued use of steroids however she does have a left shift in her neutrophils. Her chemistries are unremarkable. Her respiratory swabs are negative. Her chest x-ray reveals increased interstitial markings with superimposed infiltrates concerning for an early pneumonia. The patient was reassessed after DuoNeb treatments and does report feeling significantly improved. The patient was given a 2nd DuoNeb and Tessalon Perles and was given a loading dose of ceftriaxone. She was advised to continue her azithromycin as prescribed. She is advised to follow up with your primary care doctor in 2-3 days for repeat evaluation. Differential diagnosis: Acute bronchitis, pneumonia, pleural effusion There are no social concerns with this patient. Prescription drug management Prescriptions will include: Tessalon Perles Medical management and examination interpretation discussions were had by me with other qualified healthcare professionals as indicated for the patient's care. ED Course Orders Procedure Category Date Status Time Basic Metabolic Panel LAB 10/08/24 Complete 10:38 Cbc With Differential LAB 10/08/24 Complete 10:38 Covid Rna Naat LAB 10/08/24 Complete 10:38 Influenza Type A & B, LAB 10/08/24 Complete Rapid 10:38 Magnesium LAB 10/08/24 Complete 10:38 Chest 1vw RAD 10/08/24 Resulted 10:38 Ipratropium/Albuterol PHA 10/08/24 Complete Neb (Duoneb) 11:00 Methylprednisolone PHA 10/08/24 Complete Succ 125mg (Solu-Medr 11:00 Magnesium 2gm Premix PHA 10/08/24 In Process 50ml (Magnesium 2gm 11:00 Ceftriaxone 1g Vial PHA 10/08/24 Complete (Rocephine 1g Inj) 12:30 Benzonatate 100 Mg PHA 10/08/24 Complete Capsule (Tessalon 100 12:30 Acetaminophen With PHA 10/08/24 Logged Codeine (Tylenol-Code 12:30 Ipratropium/Albuterol PHA 10/08/24 Complete Neb (Duoneb) 12:30 Procalcitonin LAB 10/08/24 In Process 12:46 Current Medications Medications (Trade) Dose Ordered Sig/Romero Route PRN Reason Start Time Stop Time Status Last Admin Dose Admin Acetaminophen/ Codeine Phosphate (TYLenol-coDEINE TAB) 1 tab ONCE ONCE PO 10/08/24 12:30 10/08/24 12:31 UNV Albuterol (DUOneb) 1 UDVIAL ONCE ONCE IH 10/08/24 11:00 10/08/24 11:01 DC 10/08/24 11:04 Albuterol (DUOneb) 1 UDVIAL ONCE ONCE IH 10/08/24 12:30 10/08/24 12:35 DC Benzonatate (Tessalon 100mg Caps) 100 mg ONCE ONCE PO 10/08/24 12:30 10/08/24 12:36 DC 10/08/24 13:03 Ceftriaxone Sodium (ROCEphine 1G INJ) 1 gm ONCE ONCE IVPB 10/08/24 12:30 10/08/24 12:35 DC 10/08/24 13:03 Magnesium Sulfate 50 ml @ 0 mls/hr PROTOCOL IV 10/08/24 11:00 11/07/24 10:59 10/08/24 11:09 Methylprednisolone Sodium Succinate (Solu-medROL 125MG) 125 mg ONCE ONCE IVP 10/08/24 11:00 10/08/24 11:01 DC 10/08/24 11:08 Vital Signs Date Time Temp Pulse Resp B/P (MAP) Pulse Ox O2 Delivery O2 Flow Rate FiO2 10/08/24 11:09 92 20 10/08/24 10:06 99.0 94 24 123/77 99 Room Air 0 [place] [id number] [address] IMAGING REPORT Signed PATIENT: LAURA PARKER MR#: [id number] : 1985 SEX: F AGE: 39 LOCATION: [facility] ORDER [id number] STATUS: REG ER REPORT#: [id number] SERVICE 1038 REASON: sob/wheezing r/o pna ORDERING PHYSICIAN: JENNIFFER HESS PROCEDURE: CXR1VW - CHEST 1VW CHEST 1VW HISTORY: Shortness of breath COMPARISON: None FINDINGS: A frontal projection of the chest was obtained. No acute pulmonary infiltrates is seen. The heart is normal in size. Prominent interstitial markings are seen. No evidence of aortic calcification is seen. IMPRESSION: 1. Prominent interstitial markings are seen with possible superimposed infiltrates. DICTATED BY: JOSE LINDSEY MD DATE: 10/08/241219 ELECTRONICALLY SIGNED BY: JOSE LINDSEY MD DATE: 10/08/24 1224 DX & DISP Disposition: Discharge Departure Impression: Primary Impression: Acute bronchitis Condition: Stable Scripts Benzonatate (Tessalon Perles) 100 Mg Cap 1 CAP PO TID for cough for 10 Days, #30 CAP 0 Refills Prov: JENNIFFER HESS 10/08/24 Additional Instructions: Your chest x-ray today reveals prominent interstitial markings with possible superimposed infiltrates. You were given 1 g of ceftriaxone IV in the emergency department. Continue your antibiotic as prescribed. Please follow up with your primary care doctor in 24-48 hours for repeat evaluation. Referrals: JENNIFFER VALENTINE MD (PCP) Time of Disposition: 13:21 I have reviewed the case, and I agree with, Diagnosis and Plan I performed the substantive portion of the visit. I have reviewed and personally made and approve the management plan that is documented in the note by myself or the ORIN. I acknowledge for responsibility for the patient's management plan. JENNIFFER HESS October 08, 2024 13:23
[2024-10-08 13:27] VITALS: PULSE 108; RESP 20
== END 2024-10-08 13:28 | disposition home or self-care (01) ==
LOC: EDH 10:04
DX: J20.9 Acute bronchitis, unspecified (principal); Z88.5 Allergy status to narcotic agent; Z20.822 Contact with and (suspected) exposure to COVID-19
CPT/HCPCS: 99284; 96365; 96374; 71045; 87635; 96366; 96375; 83735; 80048; 85025; 87804 ×2; 36415; 84145; 94640 ×2; J2919; J3475; J0696

== ENCOUNTER → 2024-12-02 | Outpatient (CLI) | payer OTHER ==
[~2024-12-02] MED LIST changes: +BENZ-39 PO
[2024-12-02 15:27] LABS: HIV 1&2 ANTIBODY Non-Reactive (Negative)
[2024-12-03 13:28] LABS: HEPATITIS A IGM ANTIBODY Non-Reactive (Nonreactive); HEPATITIS B CORE IGM ANTIBODY Non-Reactive (Negative)
== END | disposition home or self-care (01) ==
LOC: LAB 13:31
PROVIDERS: ATTEND Obstetrics & Gynecology
DX: Z11.3 Encounter for screening for infections with a predominantly sexual mode of transmission (principal)
CPT/HCPCS: 36415; 80074; 86592; 86701; 87390

== ENCOUNTER → 2024-12-03 | Outpatient (CLI) | payer OTHER ==
--- NOTE | 2024-12-04 05:37 | HMCIMG ---
EXAMINATION: COMPLETE TRANSABDOMINAL ULTRASOUND OF PELVIS. CLINICAL HISTORY: Screen for infection. COMPARISON: None provided. TECHNIQUE: Multiple real-time grayscale images of the pelvis were obtained with transabdominal transducer. In addition, color Doppler is medically necessary to perform to assess for vascularity and blood flow. FINDINGS: The uterus is anteverted, normal in caliber and measures 7.6 x 3.8 x 5.6 cm in the craniocaudal, AP, and transverse dimensions respectively. The endometrium measures approximately 0.50 cm. Cervix appears normal. The right ovary is normal in caliber and measures 3.0 x 1.9 x 2.6 cm. There is a follicular cyst that measures 1.6 x 0.7 x 1.1 cm. The left ovary is normal in caliber and measures 2.9 x 2.3 x 2.2 cm. There is no free fluid in the cul-de-sac. IMPRESSION: Right ovarian follicular cyst. /[place]
== END | disposition home or self-care (01) ==
LOC: RAH 08:57
PROVIDERS: ATTEND Nurse Practitioner Family
DX: Z11.3 Encounter for screening for infections with a predominantly sexual mode of transmission (principal); N83.01 Follicular cyst of right ovary
CPT/HCPCS: 76856